=== PATIENT | female | born 1990 | race African-American/Black ===

== ENCOUNTER 2024-01-08 08:22 | Outpatient (CLI) | payer OTHER | END 2024-01-08 08:23 | disposition home or self-care (01) | LOC: CSHSLEEP 08:22 | PROVIDERS: ATTEND Nurse Practitioner Family | DX: G47.33 Obstructive sleep apnea (adult) (pediatric) (principal); R06.83 Snoring; G47.00 Insomnia, unspecified; F32.A Depression, unspecified; F41.9 Anxiety disorder, unspecified | CPT/HCPCS: 95801 ==